=== PATIENT | female | born 1955 | race Caucasian/White ===

== ENCOUNTER 2018-06-28 10:46 | Emergency (ER) | payer BC ==
[~2018-06-28] VITALS: Ht 160 cm; Wt 88.0 kg
[~2018-06-28 10:46] MED LIST: ALPRAZOLAM0.5 MG PO; ASPIR-LOW81 MG PO; BUPRENORPHINE HC8 MG SL; COLACE100 MG PO; CYMBALTA60 MG; DILTIAZEM ER180 MG PO; DULOXETINE HCL60 MG PO; FOLIC ACID1 MG PO; FUROSEMIDE40 MG PO; GABAPENTIN300 MG PO; IRON18 MG PO; LISINOPRIL5 MG PO; MAPAP325 MG PO; OMEPRAZOLE20 M1 PO; PRAMIPEXOLE0.125 MG; RISPERDAL0.5 MG PO; TYLENOL325 MG PO; VITAMIN B12-FO1 EACH PO; VITAMIN C500 M1 PO; XANAX0.25 MG PO; ZOFRAN8 MG PO
[2018-06-28] MEDS ORDERED: MOBIC15 MG PO (11:06)
[2018-06-28] MEDS ORDERED: METOPROLOL SUCC50 MG PO (11:07)
== END 2018-06-28 13:00 | disposition home or self-care (01) ==
LOC: ED 10:46
DX: M79.81 Nontraumatic hematoma of soft tissue (principal); I10 Essential (primary) hypertension; F41.9 Anxiety disorder, unspecified; Z85.038 Personal history of other malignant neoplasm of large intestine; Z98.84 Bariatric surgery status; Z90.89 Acquired absence of other organs; Z91.041 Radiographic dye allergy status; Z79.899 Other long term (current) drug therapy
CPT/HCPCS: 74176; 80053; 81001; 83690; 85025; 99284-25

== ENCOUNTER 2018-10-03 06:05 | Day surgery (SDC) | payer BC ==
[~2018-10-03] VITALS: Ht 160 cm; Wt 86.2 kg
[~2018-10-03 06:05] MED LIST changes: +ADVIL200 MG PO; +ALPRAZOLAM0.25 MG PO; +DILTIAZEM 24HR240 M3 PO; +DOXYCYCLINE HY100 MG PO; +METOPROLOL SUCC25 MG PO; +METOPROLOL SUCC50 MG PO; +MOBIC15 MG PO; +NABUMETONE500 MG PO; +VIACTIV SOFT C1 EACH PO; +VITAMIN D35000 UNI1 PO
--- NOTE | 2018-10-03 08:42 | NUR ---
10/03/18 0842 Altagracia Medrano 0838 PATIENT ARRIVES TO PACU AWAKE OFF/ON, BUT DROWSY. ANSWERS QUESTIONS APPROPRIATELY. RESP EVEN AND UNLABORED, MASK AT 6 LITERS. 0840 MASK OFF, ROOM AIR SATS >95%.
--- NOTE | 2018-10-03 14:39 | NUR ---
PT IS ALERT, ORIENTED AND SUPPORTED BY HER MARISSA. PT'S FIRST SCOPE, AND SEEMED TO COPE WELL WITH PREP. HAD FEW QUESTIONS, REQUESTED PRAYER, WILL FOLLOW NEEDED
--- NOTE | 2018-10-05 21:40 | OR ---
[facility] [address], [place] [address] Signed DATE OF OPERATION: 10/03/2018 SURGEON: Pablo Ward MD PREOPERATIVE DIAGNOSES: 1. Heme-positive stool. No overt rectal bleeding. 2. History of low anterior resection for malignant polyp in 1997. 3. History of anastomotic stricture requiring dilation in 1998. POSTOPERATIVE DIAGNOSES: 1. Mild anastomotic inflammation. No evidence of recurrent polyps or cancer. 2. Internal hemorrhoids. 3. Mild inflammation of rectum and roger-sigmoid. PROCEDURES: 1. Total colonoscopy to cecum with biopsy of anastomotic area with application of hemoclips. 2. Biopsy of rectum and sigmoid. ANESTHESIA: Intravenous sedation with propofol infusion, Monet Gudino CRNA. INDICATION: This 63-year-old white woman is a patient of Dr. Bernarda Negron in the [facility]. She has been found to have occult blood in the stool, although she has had no overt rectal bleeding or hematemesis. She has no associated diarrhea or constipation. She underwent low anterior resection with anastomosis by wy in 1997, which was complicated by anastomotic stricture requiring anastomotic dilation and other interventions, ultimately healing well. Her last colonoscopy was in 2014 showing no sign of polyps or other problem. She was admitted at this time to undergo colonoscopy to rule out neoplastic causes of occult blood in the stool. She understands the risks of bleeding, infection, perforation, and wished to proceed. FINDINGS: The prep was adequate with irrigation, but not great. Complete colonoscopy was undertaken to the cecum without question. The anastomosis was patent, but obvious and had mild inflammatory changes with small amount of blood noted. This may well have accounted for fecal occult blood. Biopsies were taken of the anastomosis as well as the roger-sigmoid and the rectum. She did have internal hemorrhoids noted as well. There was no evidence of polyp or cancer or diverticular formations. Electronically Signed By: PABLO WARD MD 10/05/18 2140 PATIENT NAME: CHATO MONAE OPERATIVE REPORT DATE OF : 55 REPORT #: [id number] PHYSICIAN: PABLO WARD MD PCP: BERNARDA NEGRON MD REPORT IS CONFIDENTIAL AND NOT TO BE RELEASED WITHOUT AUTHORIZATION [facility] [address], [place] [address] Signed DESCRIPTION OF PROCEDURE: The patient was brought to the secondary endoscopy suite, placed in lateral decubitus position, given intravenous sedation with propofol infusional technique. Digital rectal examination showed external hemorrhoidal changes. An Olympus video colonoscope was passed in the rectum identifying at about 10 to 12 cm of the anastomosis. It was patent, but narrower than the point hope ira colon as would be expected. Prior to passage through it, it was noted that there was a small amount of inflammation circumferentially in the anastomosis. There was no sign of ulceration per se nor neoplasm. The scope was passed beyond it without problem and manipulated throughout the colon. Considerable amount of irrigation and time was required as her prep was suboptimal, no doubt related to only 2 days of low-fiber diet and from the MiraLAX prep. Ultimately, scope was passed to the cecum. Irrigation was undertaken. Characteristic landmarks were affirmed. Scope was then withdrawn and careful examination showed no sign of polyps or cancer or diverticular formations. There appeared to be mild edema of the sigmoid for which biopsies were obtained. Upon withdrawal, the anastomosis itself had inflammatory appearance. This was biopsied as well. There was prompt bleeding at the anastomotic biopsy sites and therefore two hemoclips were applied. This allowed for good hemostasis. The rectum was biopsied and retroflexed view showed internal hemorrhoidal changes. Scope was straightened and removed and the patient was taken to recovery room in good condition. CONCLUDING DIAGNOSIS: Fecal occult bleeding may be related to anastomotic inflammation and minimal bleeding. PLAN: We will initiate Cortenema one p.r. daily x7 days and discontinue. Advise Citrucel one tablespoon daily with added water. If she should have overt bleeding or other problems, she will let me know. She will return to the ongoing care of her primary provider, Dr. Negron otherwise. MD GRANT Denny/MODL /[id number] Electronically Signed By: PABLO WARD MD 10/05/18 2140 PATIENT NAME: CHATO MONAE OPERATIVE REPORT DATE OF : 55 REPORT #: [id number] PHYSICIAN: PABLO WARD MD PCP: BERNARDA NEGRON MD REPORT IS CONFIDENTIAL AND NOT TO BE RELEASED WITHOUT AUTHORIZATION [facility] [address], [place] [address] Signed cc: Bernarda Negron MD Copies: BERNRADA NEGRON MD ~ Electronically Signed By: PABLO WARD MD 10/05/18 2140 PATIENT NAME: CHATO MONAE OPERATIVE REPORT DATE OF : 55 REPORT #: [id number] PHYSICIAN: PABLO WARD MD PCP: BERNARDA NEGRON MD REPORT IS CONFIDENTIAL AND NOT TO BE RELEASED WITHOUT AUTHORIZATION
== END 2018-10-03 09:20 | disposition home or self-care (01) ==
LOC: DS 06:05 → OPS 06:05 → DS 06:45 → OPS 06:45
PROVIDERS: Surgery
PROC: 0DBN8ZX Excision of Sigmoid Colon, Via Natural or Artificial Opening Endoscopic, Diagnostic (ICD-10-PCS; 2018-10-03)
PROC: 0DBP8ZX Excision of Rectum, Via Natural or Artificial Opening Endoscopic, Diagnostic (ICD-10-PCS; principal; 2018-10-03 06:45)
DX: K63.5 Polyp of colon (principal); K63.89 Other specified diseases of intestine; K64.8 Other hemorrhoids; K64.4 Residual hemorrhoidal skin tags; K52.9 Noninfective gastroenteritis and colitis, unspecified; K62.89 Other specified diseases of anus and rectum; D64.9 Anemia, unspecified; I10 Essential (primary) hypertension; F32.9 Major depressive disorder, single episode, unspecified; Z86.010 Personal history of colon polyps; Z85.038 Personal history of other malignant neoplasm of large intestine; Z91.041 Radiographic dye allergy status; Z91.048 Other nonmedicinal substance allergy status; Z79.899 Other long term (current) drug therapy
CPT/HCPCS: J2250; J2405; J2704; J7120

== ENCOUNTER 2021-07-14 06:00 | Day surgery (SDC) | payer MEDICARE, BC ==
[~2021-07-14] VITALS: Ht 160 cm; Wt 89.1 kg
[~2021-07-14 06:00] MED LIST changes: +CANDICIDAL CAP1 EACH PO; +CYMBALTA30 MG PO; +DICLOFENAC SODI75 MG PO; +FOSAMAX70 MG PO; +LYRICA50 MG PO; +NEURONTIN100 MG PO; +OMEPRAZOLE20 MG PO
--- NOTE | 2021-07-14 08:35 | NUR ---
07/14/21 0835 Haven,Lauren 0896 PT ARRIVED TO PACU ON RA AND PT WAKES EASILY AND DENIES PAIN AND NAUSEA. VSS. PT ENCOURAGED TO PASS GAS.
--- NOTE | 2021-07-14 10:48 | NUR ---
PT ALERT, ORIENTED AND HERE FOR SCOPE. PT HAS BATTLED COLON CANCER, AND WANTS TO STAY ON TOP OF THINGS WITH REGULAR SCOPES. FAMILY PRESENT AND WILL REMAIN FOR DC. PT REQUESTED PRAYER, WILL FOLLOW NEEDED
--- NOTE | 2021-07-14 12:07 | OR ---
[facility] [address] [place], [place] [address] Signed DATE OF OPERATION: 07/14/2021 SURGEON: Pablo Ward MD PREOPERATIVE DIAGNOSES: 1. Episodic rectal bleeding, chronic anemia, hematocrit of 30. 2. History of low anterior resection for malignant polyp in 1994. 3. History of gastric bypass operation. POSTOPERATIVE DIAGNOSES: 1. Internal hemorrhoidal changes. 2. Impacted stool at cecal possible diverticulum. PROCEDURE: Total colonoscopy to cecum with multiple biopsies beneath impacted stool at cecum. ANESTHESIA: Intravenous sedation propofol, Cathie Batista VENEER GLUE JOINTER FEEDBACK. INDICATION: A 66-year-old white woman is well known to me from the past having undergone low anterior resection for malignant polyp in 1994. She did develop a subsequent stricture which was ultimately dilated. She has had subsequent colonoscopy over time. She does have family history of colon cancer in her sister who developed rectal cancer requiring advanced treatment. The patient has had episodic rectal bleeding and has chronic anemia. She additionally has had gastric bypass operation, likely accounting or contributing to anemia. She is admitted to undergo colonoscopy to better characterize the rectal bleeding and to assess for recurrent polyp or other abnormality. The risk of bleeding, infection, and perforation was reviewed with her. She understands and wished to proceed. FINDINGS: The prep was good. Complete colonoscopy was undertaken to the cecum. The anastomosis was widely patent. There was no evidence of stricture. Retroflexed view did confirm internal hemorrhoidal changes. In the cecum, there was an area that was suggestive of a wide-mouth diverticulum with impacted stool. Various manipulations were made to remove the stool, but this was not possible. On that basis, biopsies were taken at the base of the presumed diverticulum to assess for malignancy. DESCRIPTION OF PROCEDURE: Electronically Signed By: PABLO WARD MD 07/14/21 1207 PATIENT NAME: CHATO MONAE OPERATIVE REPORT DATE OF : 55 REPORT #: [id number] PHYSICIAN: PABLO WARD MD PCP: BERNARDA NEGRON MD REPORT IS CONFIDENTIAL AND NOT TO BE RELEASED WITHOUT AUTHORIZATION [facility] [address] [place], [place] [address] Signed The patient was brought to the surgical endoscopy suite and placed in the lateral decubitus position, given intravenous sedation to the point of slurred speech and nystagmus with propofol infusional technique. Full cardiopulmonary monitoring was maintained of course. An Olympus video colonoscope was passed in the rectum after digital rectal examination was found to be normal. The scope was manipulated through the low anterior anastomosis, which was widely patent. Ultimately, the scope was passed to the area of the cecum. An area of solid stool was noted in what appeared to be a cecal diverticulum. Various manipulations were made with a forcep to dislodge the stool, but this was not forthcoming. On that basis, biopsies were taken blindly behind the impacted stool area, ultimately obtaining tissue. Irrigation was undertaken as needed as well. The scope was then withdrawn. Examination showed no evidence of abnormality otherwise. Retroflexed view confirmed internal hemorrhoids. The patient was taken to the recovery room in good condition. CONCLUDING DIAGNOSIS: Internal hemorrhoids, most likely accounting for her rectal bleeding. If she should have continued bleeding, consideration will be made for internal hemorrhoidal banding in the office setting. As regard to the cecal lesion, we will await pathology reports. Most likely this does not represent malignancy, though all due care is taken to provide biopsies to more fully assure that. We will have her return to the office in 4 to 6 weeks, in either case to further assess her symptoms and review pathology reports. MD GRANT Denny/ANAL /[id number] cc: Bernarda Negron MD Copies: BERNARDA NEGRON MD ~ Electronically Signed By: PABLO WARD MD 07/14/21 1207 PATIENT NAME: CHATO MONAE OPERATIVE REPORT DATE OF : 55 REPORT #: [id number] PHYSICIAN: PABLO WARD MD PCP: BERNARDA NEGRON MD REPORT IS CONFIDENTIAL AND NOT TO BE RELEASED WITHOUT AUTHORIZATION
--- NOTE | 2021-07-15 17:47 | PATH ---
[facility] [address] [place], [place] [address] Signed SPECIMEN(S): A CECUM BIOPSY SPECIMEN SOURCE: A. CECUM BIOPSY CLINICAL HISTORY: Hx: Rectal bleeding. Post: Questionable cecal lesion. FINAL PATHOLOGIC DIAGNOSIS: Colon, cecum, biopsy: - Fragments of colonic mucosa with focal lamina propria fibrosis and hyperplastic changes. - Negative for dysplasia or malignancy. NAL:cml:C2NR MICROSCOPIC EXAMINATION: Histologic sections of all submitted blocks are examined by light microscopy. These findings, together with the gross examination, support the pathologic diagnosis. GROSS DESCRIPTION: The specimen, labeled "CS, cecum biopsy," is received in formalin and consists of multiple storm soft tissue fragment(s) that measure 1.5 x 1.6 x 0.2 cm aggregate. The specimen is entirely submitted in cassette (A1). JS (under the direct supervision of a pathologist) The Gross Description was prepared using a voice recognition system. The report was reviewed for accuracy; however, sound-alike word errors, addition and/or deletions may occur. If there is any question about this report, please contact Client Services. PERFORMING LABORATORY: The technical component was performed by [employer], [address] [place] [id number] (Heating And Air Conditioning Mechanic: Ghada Cyr MD; CLIA# [id number]). [facility] [address] [address] (CLIA# [id number]). Diagnostician: Ashlyn Rangel MD Pathologist Electronically Signed 07/15/2021 PATIENT NAME: CHATO MONAE PATHOLOGY DATE OF : 55 REPORT #: [id number] PHYSICIAN: LUCÍA PATHOLOGY PCP: ANA MARIA CANTU MD REPORT IS CONFIDENTIAL AND NOT TO BE RELEASED WITHOUT AUTHORIZATION [address] [place], [place] [address] Signed Copies: ~ PATIENT NAME: CHATO MONAE PATHOLOGY DATE OF : 55 REPORT #: [id number] PHYSICIAN: LUCÍA PATHOLOGY PCP: ANA MARIA CANTU MD REPORT IS CONFIDENTIAL AND NOT TO BE RELEASED WITHOUT AUTHORIZATION
== END 2021-07-14 09:04 | disposition home or self-care (01) ==
LOC: OPS 06:00 → DS 06:00 → OPS 07:30
PROVIDERS: ATTEND Surgery
PROC: 0DBH8ZX Excision of Cecum, Via Natural or Artificial Opening Endoscopic, Diagnostic (ICD-10-PCS; principal; 2021-07-14 07:30)
DX: K64.8 Other hemorrhoids (principal); K56.41 Fecal impaction; K63.89 Other specified diseases of intestine; I10 Essential (primary) hypertension; E66.01 Morbid (severe) obesity due to excess calories; Z68.35 Body mass index [BMI] 35.0-35.9, adult; Z85.038 Personal history of other malignant neoplasm of large intestine; Z80.0 Family history of malignant neoplasm of digestive organs; Z98.84 Bariatric surgery status; Z87.81 Personal history of (healed) traumatic fracture; Z91.041 Radiographic dye allergy status; Z91.048 Other nonmedicinal substance allergy status; Z98.890 Other specified postprocedural states
CPT/HCPCS: J2001; J2704; J7121

== ENCOUNTER 2022-01-08 14:30 | Inpatient (IN) | payer MEDICARE, BC ==
[~2022-01-08] VITALS: Ht 160 cm; Wt 81.1 kg
[~2022-01-08 14:30] MED LIST changes: +FOLIC ACID0.4 MG PO; -FOLIC ACID1 MG PO; -IRON18 MG PO; +IRON325 M1 PO; +VIACTIV 650 MG1 EACH PO; -VIACTIV SOFT C1 EACH PO
[2022-01-08] MEDS ORDERED: ZESTRIL20 MG PO (15:01)
[2022-01-08] MEDS ORDERED: LYRICA150 MG PO (15:01)
[2022-01-08] MEDS ORDERED: RISPERDAL0.5 MG PO (15:02)
[2022-01-08] MEDS ORDERED: ONDANSETRON ODT8 MG PO (15:02)
[2022-01-08] MEDS ORDERED: TOPROL XL100 MG PO (15:04)
[2022-01-08] MEDS ORDERED: BUPRENORPHINE HC8 MG SL (15:04)
[2022-01-08] MEDS ORDERED: PRILOSEC OTC20 MG PO (15:04)
[2022-01-08] MEDS ORDERED: DICLOFENAC SODI75 MG PO (15:06)
[2022-01-08] MEDS ORDERED: CYMBALTA60 MG PO (15:06)
--- OUTSIDE RECORDS SUMMARY | 2022-01-08 16:14 | XMS ---
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 Roberto VISIT COUNT (12 MO.) Michael Jhaveri TOTAL 1 NOTE: Visits indicate total known visits. ED/UCC VISIT TRACKING (12 MO.) 01/08/2022 14:[address] [facility] [place] TYPE: Emergency COMPLAINT: - MULTIPLE COMPLAINTS INPATIENT VISIT TRACKING (12 MO.) No inpatient visits to display in this time frame [id number]
[2022-01-09] MEDS ORDERED: ONDANSETRON HCL8 MG PO (08:54)
[2022-01-09] MEDS ORDERED: DILTIAZEM 2% TOP (08:56)
[2022-01-09] MEDS ORDERED: ACETAMINOPHEN500 MG PO (08:59)
--- NOTE | 2022-01-11 09:21 | OR ---
[facility] [address] [place], [place] [address] Signed DATE OF OPERATION: 01/10/2022 SURGEON: Pablo Ward MD PREOPERATIVE DIAGNOSES: 1. Anemia of uncertain etiology. 2. History of low anterior resection for malignant polyp in 1995. 3. History of Margie-en-Y gastric bypass. 4. Known posterior anal fissure. POSTOPERATIVE DIAGNOSES: 1. No evidence of abnormality on upper endoscopy. 2. Normal colon to cecum except for posterior anal fissure. PROCEDURES: 1. Esophagogastroduodenoscopy with biopsy. 2. Total colonoscopy to cecum. ANESTHESIA: Intravenous sedation; propofol infusion, Pablo Marmolejo CRNA INDICATIONS: This 66-year-old white woman was admitted by [facility] on January 08, 2022, with severe and intractable anorectal pain. Outpatient management of posterior anal fissure had been unsuccessful. She takes buprenorphine on the basis of chronic pain management issues and has underlying constipation. A CT scan was performed upon her presentation to the emergency room with intractable pain, which showed a fair amount of stool within the colon and a markedly dilated gallbladder and biliary tree. Strangely, she does not have significantly elevated liver enzymes and no sign of neoplasm of the pancreatic head. She was incidentally found to have a hematocrit of 27, subsequently, 20. She has had no overt bleeding. She has undergone MiraLAX as a remedy to her constipation and also has a preamble to colonoscopy and is also to concurrently undergo upper endoscopy to better characterize the source of her anemia. The risk of bleeding, infection, and perforation were reviewed with her, she understands and wished to proceed. FINDINGS: Upper endoscopy demonstrated a normal esophagus and very small gastric pouch. No sign of ulceration. CLOtest was negative. The jejunal limb was normal as well. I saw no peristomal ulceration. Electronically Signed By: PABLO WARD MD 01/11/22 0921 PATIENT NAME: CHATO MONAE OPERATIVE REPORT DATE OF : 55 REPORT #: [id number] PHYSICIAN: PALBO WARD MD PCP: BERNARDA NEGRON MD REPORT IS CONFIDENTIAL AND NOT TO BE RELEASED WITHOUT AUTHORIZATION [facility] [address] [place], [place] [address] Signed On colonoscopy, the prep was poor but with perseverance complete colonoscopy was undertaken to the cecum. With irrigation and so forth, reasonable evaluation of the mucosa showed no evidence of neoplasm, colitis, or other source of anemia. A posterior anal fissure was demonstrated as previously noted. DESCRIPTION OF PROCEDURE: The patient was brought to the surgical endoscopy suite and placed in lateral decubitus position, given intravenous sedation by propofol infusional technique and a bite block was placed. The Olympus video upper endoscope was passed in the hypopharynx. The vocal cords appeared normal. Scope was passed down the esophagus without problem showing no abnormality. A very small gastric pouch was noted. A side to end gastrojejunostomy anastomosis were identified, showing no sign of peristomal ulceration or other problem. The efferent limb was intubated and passed as far as the scope could go showing no sign of abnormality. I saw no junction between jejunum and duodenum. Careful withdrawal of scope confirmed this. There was a small diverticulum of no significance noted, however. Upon withdrawal to the gastric pouch, biopsies were taken of the gastric pouch for both PRESTON and pathologic testing. There was no sign of ulceration or source of anemia. The scope was withdrawn. The esophagus was normal. The distal portion was biopsied. Withdrawal of scope showed no other abnormalities. Plans were made for colonoscopy. Digital rectal examination was undertaken. She has significant external hemorrhoidal changes. An Olympus video colonoscope was passed in the rectum and manipulated into the rectum where a very poor bowel prep was noted despite a MiraLAX prep undertaken last night. Irrigation was undertaken as necessary and with perseverance and patience, the scope was advanced ultimately to the cecum. The ileocecal valve and appendiceal orifice were identified as normal. Irrigation was undertaken and upon withdrawal of the scope, no abnormalities were noted. Some moderately well-formed stool was noted on the left side and therefore complete assurity of no abnormality cannot be ascertained entirely. The anastomosis itself was widely patent without sign of abnormality specifically neoplasm and the rectum was essentially normal. Close inspection of the anorectum confirmed a posterior anal fissure which was not extremely lengthy, but certainly inflamed and present. The scope was removed. The patient was taken to the recovery room in good condition. CONCLUSION DIAGNOSES: 1. No evidence of lesion on upper endoscopy to account for anemia; one is mindful that the excluded stomach and duodenum have not been examined. 2. No lesion on colon to account for anemia. Pablo Ward MD Electronically Signed By: PABLO WARD MD 01/11/22 0921 PATIENT NAME: CHATO MONAE OPERATIVE REPORT DATE OF : 55 REPORT #: [id number] PHYSICIAN: PABLO WARD MD PCP: BERNARDA NEGRON MD REPORT IS CONFIDENTIAL AND NOT TO BE RELEASED WITHOUT AUTHORIZATION [facility] [address] [place], [place] [address], [place] [address] Signed /[facility] /[id number] cc: Bernarda Negron MD Copies: BERNARDA NEGRON MD ~ Electronically Signed By: PABLO WARD MD 01/11/22920 PATIENT NAME: CHATO MONAE OPERATIVE REPORT DATE OF : 55 REPORT #: [id number] PHYSICIAN: PABLO WARD MD PCP: BERNARDA NEGRON MD REPORT IS CONFIDENTIAL AND NOT TO BE RELEASED WITHOUT AUTHORIZATION
--- NOTE | 2022-01-11 14:42 | HP ---
[facility] [address], [place] [address] Signed ADMISSION DATE: 01/08/2022 REASON FOR ADMISSION: Severe perianal pain. RECENT DIAGNOSES: Anal fissure and constipation; additional diagnosis of distended biliary tree with gallstones. HISTORY OF PRESENT ILLNESS: This 66-year-old white woman is well known to me from the past. She is last seen by me on as a walk-in with complaints of severe anal pain and tenesmus. She underwent colonoscopy by me in the past year, which was essentially normal. 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 She presented to the emergency room this evening, was evaluated by Dr. Garcia with complaints of "abdominal pain and rectal pain." Upon discussing things with the patient, she is a bit disorganized in the recognition of her main complaint which as it turns out is anal pain. When she was in my office, she had several episodes of tenesmus, unable to produce bowel movement though with spasm and so forth. Anal examination in the office on showed a posterior anal fissure and although not excessively large was definitely present and probably chronic. She was prescribed diltiazem ointment (which she received and began yesterday) as well as Anusol HC suppository and recommendation of a fiber supplement and so on. The patient cannot recall if she has had a bowel movement since I saw her on . Evaluation in the emergency room included a CT scan of the abdomen which showed stool in the transverse left colon and as well as a widely patent colorectal anastomosis. Additionally noted and previously noted on other imaging studies months ago was a markedly dilated biliary tract and previous findings of intracholedochal stones between 1.5 in 2 cm in size. The gallbladder now was quite markedly distended and the biliary tree is difficult to distinguish, though it is considered dilated with both intrahepatic and extrahepatic ductal dilation. She shows no evidence of obvious pancreatic head neoplasm and there is no "double duct sign." Specifically, the pancreatic duct is not dilated. PAST MEDICAL HISTORY: Electronically Signed By: PABLO WARD MD 01/11/22 1442 PATIENT NAME: CHATO MONAE HISTORY AND PHYSICAL DATE OF : 55 REPORT #: [id number] PHYSICIAN: PABLO WARD MD PCP: ANA MARIA CANTU MD REPORT IS CONFIDENTIAL AND NOT TO BE RELEASED WITHOUT AUTHORIZATION [facility] [address], [place] [address] Signed Complex and includes laparoscopic gastric bypass operation for which she had a fair amount of weight loss. This was a number of years ago. Her CT scan that was performed-previously and currently shows no sign of internal hernia or bowel obstruction in any way. She has osteoarthritis and fibromyalgia and chronic pain syndrome for which she is currently on buprenorphine. She additionally has anxiety issues, gastroesophageal reflux and hypertension. CURRENT MEDICATIONS: Include buprenorphine 8 mg sublingual t.i.d. as well as lisinopril 20 mg daily. Lyrica 150 mg p.o. b.i.d., risperidone 0.5 mg p.o. at bedtime, Zofran ODT 8 mg p.o. q.i.d., omeprazole 20 mg daily, metoprolol (Toprol-XL) 100 mg p.o. daily, diclofenac 75 mg b.i.d., Cymbalta 60 mg p.o. daily, Lasix 80 mg p.o. daily, Tylenol 1000 mg p.o. q.i.d., vitamin C 500 mg p.o. daily, vitamin B12 one p.o. daily, iron tablet 130 mg p.o. b.i.d., folic acid 400 mcg p.o. daily, vitamin D3 5000 units a day, calcium carbonate, vitamin K, vitamin D3 tablet daily and Colace 100 mg p.o. Not mentioned was her recent initiation of diltiazem as well as Anusol-HC suppository. Her evaluation in the emergency room included normal urinalysis, COVID negative serology and a white count of 8.7, hematocrit of 27.2 with a potassium of 3.3, a creatinine 0.7. Her liver enzymes are surprisingly normal with alkaline phosphatase elevated at 151, but ALT and AST are normal. Bilirubin normal at 0.4. REVIEW OF SYSTEMS: She denies any chest pain or shortness of breath. She only has vague abdominal pain, i is definitely not her dominant complaint at this time. Her main complaint is perianal pain and rectal pain. I reviewed the CT scan as well as interpretation of the scan. ASSESSMENT: Her dominant problem remains anorectal pain presumably related to the posterior anal fissure. She only started her diltiazem ointment yesterday. Under these circumstances, she may be best advised to proceed directly to lateral internal sphincterotomy and she has pronounced an exaggerated and excessive perianal pain, which we would attribute to spasm and the anal fissure. As she has had colonoscopy in the past year that showed no sign of neoplastic disease or anastomotic stricture that is quite a bit less likely, though not impossible of course. At present, we will address her perianal pain with measures to minimize opiate use as she has had obvious dependency issue in the past and on that basis is on buprenorphine. She may require exam under anesthesia and lateral internal sphincterotomy promptly. I would prefer to get her presumably constipated bowel movement going and will need to assess the most efficacious way to do so without exacerbating her perianal pain. She may require more complete bowel evacuation after sphincterotomy. Electronically Signed By: PABLO WARD MD 01/11/22 1442 PATIENT NAME: CHATO MONAE HISTORY AND PHYSICAL DATE OF : 55 REPORT #: [id number] PHYSICIAN: PABLO WARD MD PCP: ANA MARIA CANTU MD REPORT IS CONFIDENTIAL AND NOT TO BE RELEASED WITHOUT AUTHORIZATION [facility] [address], [place] [address] Signed As regards to the biliary tree, she clearly needs cholecystectomy and probably common duct exploration. I am slightly surprised that she does not have more profound elevation of the liver enzymes or even her bilirubin. The dilation of the biliary tree is significant in the gallbladder even more so. Always of concern of course is occult pancreatic neoplasm or ampullary neoplasm. The ampulla is out of reach for endoscopic evaluation as she has had a gastric bypass operation. Consideration might be made for another imaging modality such as MRI to more fully assess this, but it is certainly possible that she simply has choledocholithiasis without associated ampullary or pancreatic neoplasm. Although CA 19-9 tumor marker is not specific to malignancy and can be elevated primarily in biliary obstructive processes. We will order that as well, which may guide therapy depending on whether or not it is markedly elevated or more importantly if it is normal. I have discussed all this with the patient. She is said to have been unable to eat in the past few days and yet now she is quite ravenously hungry for a hamburger. Hamburger is not available at this hour, but perhaps a turkey sandwich is something of that sort and may be possible. MD GRANT Denny/MODL /[id number] cc: Gavin Garcia MD Dr. Copies: GAVIN GARCIA MD ~ Electronically Signed By: PABLO WARD MD 01/11/22 1442 PATIENT NAME: CHATO MONAE HISTORY AND PHYSICAL DATE OF : 55 REPORT #: [id number] PHYSICIAN: PABLO WARD MD PCP: ANA MARIA CANTU MD REPORT IS CONFIDENTIAL AND NOT TO BE RELEASED WITHOUT AUTHORIZATION
--- NOTE | 2022-01-11 14:48 | PATH ---
[facility] [address], [place] [address] Signed SPECIMEN(S): A GASTRIC POUCH BIOPSY SPECIMEN(S): B ESOPHAGEAL BIOPSY SPECIMEN SOURCE: A. GASTRIC POUCH BIOPSY B. ESOPHAGEAL BIOPSY CLINICAL HISTORY: Anemia, rectal fissure. Post: Normal upper GI scope. Normal lower GI scope. Posterior anal fissure. FINAL PATHOLOGIC DIAGNOSIS: A. Gastric pouch biopsy: - Benign gastric and small bowel-type mucosa with focal slight chronic inflammation and reactive features. - Negative for evidence of Helicobacter organisms on routine HE stained sections. B. Esophageal biopsy: - Benign esophageal mucosa, negative for increased epithelial eosinophils. - Negative for glandular mucosa. JVR:[place]:C2NR MICROSCOPIC EXAMINATION: Histologic sections of all submitted blocks are examined by light microscopy. These findings, together with the gross examination, support the pathologic diagnosis. GROSS DESCRIPTION: Two specimens are received in two containers, labeled "CS." A. The specimen, labeled and designated" CS, gastric pouch biopsy," is received in formalin and consists of seven storm soft tissue fragment(s) that measure 0.1-0.2 cm in greatest dimension. The specimen is entirely submitted in cassette (A1). B. The specimen, labeled and designated" CS, esophageal biopsy," is received in formalin and consists of two storm soft tissue fragment(s) that measure 0.2-0.3 cm in greatest dimension. The specimen is entirely submitted in cassette (B1). VB (under the direct supervision of a pathologist) The Gross Description was prepared using a voice recognition system. The report was reviewed for accuracy; however, sound-alike word errors, addition and/or deletions may occur. If there is any PATIENT NAME: CHATO MONAE PATHOLOGY DATE OF : 55 REPORT #: [id number] PHYSICIAN: LUCÍA QUISPE PCP: ANA MARIA CANTU MD REPORT IS CONFIDENTIAL AND NOT TO BE RELEASED WITHOUT AUTHORIZATION [facility] [address], [place] [address] Signed question about this report, please contact Client Services. PERFORMING LABORATORY: The technical component was performed by [facility], [address] [place] [address] (CLIA# [id number]). Professional interpretation was performed by [facility], [address] [place] [id number] (CLIA#: [id number]). Diagnostician: Michele Kovacs MD Pathologist Electronically Signed 01/11/2022 Copies: ~ PATIENT NAME: CHATO MONAE PATHOLOGY DATE OF : 55 REPORT #: [id number] PHYSICIAN: LUCÍA QUISPE PCP: ANA MARIA CANTU MD REPORT IS CONFIDENTIAL AND NOT TO BE RELEASED WITHOUT AUTHORIZATION
--- NOTE | 2022-01-13 15:46 | PATH ---
[facility] [address], [place] [address] Signed SPECIMEN(S): A GALLBLADDER AND GALLSTONES SPECIMEN(S): B DISTAL COMMON DUCT BIOPSY SPECIMEN(S): C COMMON DUCT STONES SPECIMEN SOURCE: A. GALLBLADDER AND GALLSTONES B. DISTAL COMMON DUCT BIOPSY C. COMMON DUCT STONES CLINICAL HISTORY: Cholelithiasis, intra-choledochal stones/cholelithiasis and intra-choledochal stones, obstructive choledocholithiasis. FINAL PATHOLOGIC DIAGNOSIS: A. Gallbladder and gallstones: - Chronic calculous cholecystitis. - Incidental pericystic lymph node with reactive histologic features. B. Distal common duct biopsy: - Granulation tissue with acute and chronic inflammation. - Scant reactive epithelium. C. Common duct stones, gross only: - Multiple orange-brown friable calculi (3.5 x 3.0 x 1.3 cm in aggregate). JVR:[facility]:C2NR MICROSCOPIC EXAMINATION: Histologic sections of all submitted blocks are examined by light microscopy. These findings, together with the gross examination, support the pathologic diagnosis. GROSS DESCRIPTION: Three specimens are received in three containers, labeled "CS." A. The specimen, labeled "CS, A," and designated on the requisition "gallbladder and gallstones," is received in formalin and consists of Specimen: Previously opened gallbladder. Dimensions: 11.5 x 7.0 x 0.9 cm. Serosa: Green-storm and smooth. Cystic Duct: Unobstructed, margin inked black and shaved. Calculi: Multiple brown, irregularly shaped calculi (0.1-0.6 cm in greatest dimension, and 1.5 x 1.5 x 0.5 cm in aggregate). Mucosa: [place]-storm and velvety with yellow stippling. Wall thickness: 0.5 cm. PATIENT NAME: CHATO MONAE PATHOLOGY DATE OF : 55 REPORT #: [id number] PHYSICIAN: LUCÍA PATHOLOGY PCP: ANA MARIA CANTU MD REPORT IS CONFIDENTIAL AND NOT TO BE RELEASED WITHOUT AUTHORIZATION [facility] [address], [place] [address] Signed Lymph node: One pink-storm possible pericystic lymph node (1.0 cm in greatest dimension). Additional: None. [employer] sections are submitted in cassette (A1). B. The specimen, labeled "CS, B," and designated on the requisition "biopsy of distal common bile duct," is received in formalin and consists of a fragment of pink-storm soft tissue (0.2 cm in greatest dimension). The specimen is submitted entirely in cassette (B1). C. The specimen, labeled "CS, C," and designated on the requisition "common duct stones x 20," is received in formalin and consists of multiple orange-brown, friable calculi (0.2-1.4 cm in greatest dimension and 3.5 x 3.0 x 1.3 cm in aggregate). The specimen is for gross examination only. AC (under the direct supervision of a pathologist) The Gross Description was prepared using a voice recognition system. The report was reviewed for accuracy; however, sound-alike word errors, addition and/or deletions may occur. If there is any question about this report, please contact Client Services. PERFORMING LABORATORY: The technical component was performed by [facility], [address] [place] [address] (CLIA# [id number]). Professional interpretation was performed by [facility], [address] [place] [address], [place] [address] (CLIA#: [id number]). Diagnostician: Michele Kovacs MD Pathologist Electronically Signed 01/13/2022 Copies: ~ PATIENT NAME: CHATO MONAE PATHOLOGY DATE OF : 55 REPORT #: [id number] PHYSICIAN: [facility] PCP: ANA MARIA CANTU MD REPORT IS CONFIDENTIAL AND NOT TO BE RELEASED WITHOUT AUTHORIZATION
--- NOTE | 2022-01-19 14:14 | OR ---
[facility] [address], [place] [address] Signed DATE OF OPERATION: 01/11/2022 SURGEON: Pablo Ward MD PREOPERATIVE DIAGNOSES: 1. Chronic symptomatic calculus cholecystitis with multiple common bile duct stones and significant ductal dilatation. 2. History of Margie-en-Y gastric bypass. 3. Multiple medical problems including recently disabling the symptomatic anal fissure and chronic anemia. 4. Additional medical problems of buprenorphine, chronic pain management, Charcot joint of ankle, and persistent obesity. POSTOPERATIVE DIAGNOSES: 1. Chronic symptomatic calculus cholecystitis with multiple common bile duct stones and significant ductal dilatation. 2. History of Margie-en-Y gastric bypass. 3. Multiple medical problems including recently disabling the symptomatic anal fissure and chronic anemia. 4. Additional medical problems of buprenorphine, chronic pain management, Charcot joint of ankle, and persistent obesity. PROCEDURES: 1. Open cholecystectomy with intraoperative cholangiogram. 2. Open common bile duct exploration with extraction of multiple gallstones. 3. Flexible choledochoscopy with basket extraction of distal common bile duct stones. 4. Flexible choledochoscopy with distal common bile duct biopsy and brush biopsies. 5. Completion T-tube cholangiogram. ANESTHESIA: General endotracheal, Benny Ritter CRNA and Sebastian Nava CRNA and preoperative right external oblique intercostal fascial plane block. INDICATION: This 66-year-old white woman is well known to me from the past having undergone low-anterior resection for malignant polyp in the late . She has undergone incisional hernia repair and other interventions by me in the past. She additionally has undergone Margie-en-Y gastric bypass. She recently had complaints of severe perianal pain and was found to have an anal fissure. Initial medical interventions were unsuccessful in relieving her symptoms and Electronically Signed By: PABLO WARD MD 01/19/22 1414 PATIENT NAME: HCATO MONAE OPERATIVE REPORT DATE OF : 55 REPORT #: [id number] PHYSICIAN: PABLO WARD MD PCP: BERNARDA NEGRON MD REPORT IS CONFIDENTIAL AND NOT TO BE RELEASED WITHOUT AUTHORIZATION [facility] [address], [place] [address] Signed she presented to the emergency room on January 08, 2022, with disabling anorectal pain, constipation and tenesmus symptoms as well as episodic right upper abdominal pain. She has in the past number of weeks undergone ultrasound and CT scan of the abdomen, which showed a massively dilated biliary tree with massively dilated gallbladder and multiple intracholedochal stones. Notably, her alkaline phosphatase is only 214, bilirubin normal, and other liver enzymes are normal. A CA 19-9 study was obtained, which is still pending. As the patient was noted to be anemic, upper endoscopy and colonoscopy were performed. There is no evidence of lesion to account for anemia on either upper or lower endoscopic evaluation, though it is noted that much of the stomach and all the duodenum was excluded from view due to her prior gastric bypass. The patient's biliary symptoms have included right upper abdominal pain following meals for a number of weeks, which has led to her overall situation of discomfort. Her fissure problem is currently treated with a diltiazem ointment and other measures and is much improved. I have recommended cholecystectomy and common duct exploration as appropriate. Quite obviously routine ERCP would not be possible due to her gastric bypass anatomy without operative intervention to include gastrotomy and so on. The stones that have been identified in the common bile duct are exceedingly large, some of them more than 2 cm in size with the exception of intracholedochal laser lithotripsy would not be amenable to conventional extraction by ERCP or even a laparoscopic approach. On the basis of these issues, I have recommended open cholecystectomy and common duct exploration as appropriate and other indicated procedures. The risks of bleeding, infection, bile duct injury, missed pathology including malignant pathology of the ampulla or elsewhere were all reviewed in detail. She understands and wished to proceed. FINDINGS: Indeed the gallbladder was quite markedly chronically inflamed and markedly distended as was the entire biliary tree. Common bile duct measured over 2 cm in size. The cystic duct about 1 cm. The liver itself was normal. There was no evidence of carcinomatosis. The head of the pancreas was palpated as normal. There was no palpable abnormality within the duodenum, specifically no ampullary neoplasm that could be palpated. The common bile duct was impressively impacted with multiple reddish-brown multifaceted gallstones, some of them are quite soft and easily able to be crushed and others that were firm. Flexible choledochoscopy was required for extraction of stones in the distal duct. Despite all efforts, passage of even a uretero-nephroscope into the duodenum was Electronically Signed By: PABLO WARD MD 01/19/22 1414 PATIENT NAME: CHATO MONAE OPERATIVE REPORT DATE OF : 55 REPORT #: [id number] PHYSICIAN: PABLO WARD MD PCP: BERNADRA NEGRON MD REPORT IS CONFIDENTIAL AND NOT TO BE RELEASED WITHOUT AUTHORIZATION [address] [address] Signed not possible. Biopsies were taken of the distal common duct with both brush and cold biopsy techniques. At conclusion, a completion T-tube cholangiogram does not fully show passage of contrast into the duodenum itself. However, I believe that it will with time considering she did not have jaundice preoperatively. DESCRIPTION OF PROCEDURE: The patient was brought to the operating room, given a general endotracheal anesthetic. A Huddleston catheter was placed. Preoperative antibiotic Ancef was given. Sequential compression device stockings were used. The abdomen was prepared with chlorhexidine solution and draped sterilely. A relatively small right subcostal incision was made and dissection carried through the subcutaneous tissue with electrocautery. Anterior rectus sheath, rectus muscle, posterior rectus sheath, and its attended peritoneum were incised with electrocautery allowing for entry into the abdomen. Immediately noted was a very distended and chronically inflamed gallbladder. This was on a mesenteric pedicle essentially. Local examination revealed no evidence of regional adenopathy. The common bile duct was impressively dilated at 2.5 cm or so. It did not appear to be malignant. There was certainly no sign of palpable neoplasm in the duodenum or at the pancreatic head. A Bookwalter retractor was affixed to the table. A pursestring suture was made in the apex of the gallbladder allowed for decompression of dark green bile and a few bits of stone debris. Once the gallbladder was decompressed, a ring clamp was applied to the puncture site. Using electrocautery, the peritoneum of the gallbladder was incised. The gallbladder easily dissected free from the liver itself. The gallbladder was essentially on a pedicle. Note was made of leakage of bile laterally at the apex, where the gallbladder had been. This was considered likely a subvesical duct, which was clipped as a large clip allowing for complete cessation of any bile leak. Dissection taken down to the infundibulum showed a relatively dilated cystic duct and cystic arterial branches were identified and doubly clipped and divided. The cystic duct was well identified, was grasped with a tonsil clamp and a right angled clamp and transected flushed with the gallbladder proper. The gallbladder was opened on the back table and found to have chronic inflammatory change of the mucosa and stone material. There was no sign of neoplasm. Plans were then made for cholangiogram. A small catheter was placed in the cystic duct and it was partially occluded with a clip. Intraoperative cholangiography was undertaken showing free flow of contrast into the peridilated biliary tree with multiple very large gallstones throughout. The catheter was removed and the cystic duct was triply clipped. Stay sutures were placed along the distal common bile duct, not far from the duodenum on the possibility that a choledochoduodenostomy may be required. Once the stay sutures were placed, an 11 blade was used to incise the anterior wall Electronically Signed By: PABLO WARD MD 01/19/22 1414 PATIENT NAME: CHATO MONAE OPERATIVE REPORT DATE OF : 55 REPORT #: [id number] PHYSICIAN: PABLO WARD MD PCP: BERNARDA NEGRON MD REPORT IS CONFIDENTIAL AND NOT TO BE RELEASED WITHOUT AUTHORIZATION [facility] [address], [place] [address] Signed common bile duct allowing for egress of clear bile and a few bits of stone debris. Immediately noted within the lumen of the gallbladder where stones ranged in the common bile duct. Tovar scissors were used to incise the common duct more fully. Marquise stone forceps were used to grasp large stones out of the common bile duct. Some of them were quite soft and mushy and others were firm and well-formed. Irrigation was undertaken and there was no more debris. Plans were made for flexible choledochoscopy. Flexible choledochoscope was passed into the common duct and proximal examination showed segmental biliary radicles and no evidence of neoplasm or sign of stone debris. The scope was reoriented distally, where in the distal portion where some adherent bits of stone quite densely adherent to the common duct distally. A series of efforts with the biopsy forceps, stone basket and so forth were used to free the material, but to no avail really. Multiple episodes of irrigation and manipulation of the debris were undertaken, the only small bits were able to be removed at any one time. A Suzy balloon catheter was then obtained and passed distally with all due care inflated and withdrawn freeing more stone material. Re-evaluation with the choledochoscope was undertaken and additional stone material was noted. On a few occasions, stones were able to be grasped with wire basket and extracted completely. Further and progressive passage of the flexible choledochoscope was undertaken, but given the size of the scope, the most distal interrogation could not be fully undertaken. At this point, it appeared that a bile duct was clear. On that basis, a #12 T-Tube was cut to the appropriate configuration and placed into the choledochotomy. The choledochotomy was closed with running 4-0 PDS suture. A T-tube cholangiogram was then performed. This showed no evidence of obvious stones, but certainly did show incomplete passage through the biliary tree distally and certainly no passage into the duodenum proper. On that basis, a flexible ureteronephroscope was then obtained and the T-tube removed and the scope passed down the duct, able to pass more distally than previously. Additionally noted was a stone which is thought possibly related to the failure of the T-tube cholangiogram. This stone and another similar to it though small were extracted with a flexible basket through the choledochoscope as well. There being no further ability to pass the scope distally into the duodenum proper. Glucagon was administered. Still there was no clear opening of the ampulla nor was it expected particularly. The full-size flexible choledochoscope was then passed down the duct and using a cup biopsy device and brush biopsy, biopsies were obtained. There was no untoward bleeding. The T-tube was resecured to the common bile duct and a completion T-tube cholangiogram undertaken. The cholangiogram showed more passage distally, but still no complete passage into the duodenum. Mindful that stone or debris could still be obstructing the duct, options were reviewed. Electronically Signed By: PABLO WARD MD 01/19/22 1414 PATIENT NAME: CHATO MONAE OPERATIVE REPORT DATE OF : 55 REPORT #: [id number] PHYSICIAN: PABLO WARD MD PCP: BERNARDA NEGRON MD REPORT IS CONFIDENTIAL AND NOT TO BE RELEASED WITHOUT AUTHORIZATION [facility] [address], [place] [address] Signed The anatomy of her stomach and certainly inability to easily access the ampulla via ERCP due to Margie-en-Y gastric bypass without special measures of gastrotomy, etc. were taken into consideration. Careful and thorough palpation in the region of pancreatic head showed no suspicious findings for pancreatic neoplasm. There is no palpable ampullary neoplasm through the duodenal wall, which was soft and easily identified. There was no sign of regional adenopathy or sign of metastatic disease to the liver. Though uncertain, I believe it probable that she had benign obstruction of the duct related to gallstones rather than to occult neoplasm of the distal duct or the ampulla proper. On that basis, it was deemed appropriate to secure the T-tube, which was done with a running 4-0 PDS suture. Through a separate stab incision, a 7-mm back up drain of Des type was placed in the subhepatic space. It is noted that the cholangiogram still showed distended biliary tree and interestingly a probable subvesical duct to the area where the lateral clip was applied. Reinspection of subhepatic space showed no sign of bile leak or other problem. Irrigation was undertaken and plans made for closure. The posterior sheath and its attended peritoneum were reapproximated with running #1 PDS suture. A 20 mL of 0.25% Marcaine with epinephrine injected locally in several layers. The anterior rectus sheath was reapproximated with running PDS suture as well. The skin was then closed in running subcuticular 3-0 Vicryl. The T-tube had been allowed to exit from the stab incision in the mid axillary line and both drains were secured to the skin with 2-0 nylon suture. The T-tube drain was attached to a bile bag for dependent drainage and the Des drain to bulb suction. Steri-Strips were applied to the wound as was Acticoat dressing. She was ultimately extubated and transferred to the recovery room in good condition having suffered no complications. Sponge, needle, and instrument counts reported as correct x3. MD GRANT Denny/ANAL /[id number] cc: Bernarda Negron MD Electronically Signed By: PABLO WARD MD 01/19/22 1414 PATIENT NAME: CHATO MONAE OPERATIVE REPORT DATE OF : 55 REPORT #: [id number] PHYSICIAN: PABLO WARD MD PCP: BERNARDA NEGRON MD REPORT IS CONFIDENTIAL AND NOT TO BE RELEASED WITHOUT AUTHORIZATION [address] [place], [place] [address] Signed Copies: BERNARDA NEGRON MD ~ Electronically Signed By: PABLO WARD MD 01/19/22 1414 PATIENT NAME: CHATO MONAE OPERATIVE REPORT DATE OF : 55 REPORT #: [id number] PHYSICIAN: PABLO WARD MD PCP: BERNARDA NEGRON MD REPORT IS CONFIDENTIAL AND NOT TO BE RELEASED WITHOUT AUTHORIZATION
--- NOTE | 2022-01-19 14:14 | OR ---
[facility] [address], [place] [address] Signed DATE OF OPERATION: 01/14/2022 SURGEON: Pablo Ward MD PREOPERATIVE DIAGNOSES: 1. Recent open cholecystectomy with extensive common bile duct exploration and stone extraction for markedly dilated biliary tree, January 11, 2022; placement of T-tube in an accessory drain. 2. Dislodgement of T-tube from common duct (presumed). 3. Colonic ileus. POSTOPERATIVE DIAGNOSES: 1. Recent open cholecystectomy with extensive common bile duct exploration and stone extraction for markedly dilated biliary tree, January 11, 2022; placement of T-tube in an accessory drain. 2. Dislodgement of T-tube from common duct (presumed). 3. Colonic ileus. 4. Retained distal common bile duct stones. PROCEDURE: 1. Exploration of abdomen, lavage of peritoneal cavity. 2. Open common bile duct exploration (#2). 3. Flexible choledochoscopy with extraction of additional common bile duct distal stones and stone debris. 4. Placement of T-tube and completion cholangiogram with surgeon directed fluoroscopy. 5. Decompressive colotomy. ANESTHESIA: General endotracheal, Sebastian Nava CRNA. INDICATIONS: This 66-year-old white woman was initially admitted on December 31, 2021, with severe perianal pain. She was found to have a fissure previously and conservative management has been beneficial. She has undergone upper endoscopy and colonoscopy to assess for anemia. There are no findings of note there. 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 For several months, she has had a dilated biliary tree with multiple common duct stones and symptoms including postprandial right subcostal and epigastric pain. Surprisingly, her liver enzymes were normal except for a somewhat elevated alkaline Electronically Signed By: PABLO WARD MD 01/19/22 1414 PATIENT NAME: CHATO MONAE OPERATIVE REPORT DATE OF : 55 REPORT #: [id number] PHYSICIAN: PABLO WARD MD PCP: BERNARDA NEGRON MD REPORT IS CONFIDENTIAL AND NOT TO BE RELEASED WITHOUT AUTHORIZATION [facility] [address], [place] [address] Signed phosphatase; her bilirubin was normal. On January 11, 2022, she underwent open cholecystectomy as there were very large stones noted in the common bile duct based on imaging studies. Her gallbladder was quite markedly distended and dilated and was excised without problem. Open common duct exploration revealed innumerable large and small stones filling the entire biliary tree. Flexible choledochoscopy and other methods were used to clear the duct of stones. Notably, a completion T-tube cholangiogram did not show flow into the duodenum. Consideration was made initially that there may be utility to a choledochoduodenostomy. However, it was uncertain if she may have a malignant component to her obstructive process, though she did not have a "double-duct sign." Biopsies were taken of the distal duct with both brush biopsy as well as open biopsies. Her T-tube was placed and an accessory drain placed. For first 24 hours T-tube drained well and the accessory drain had little if any. Shortly thereafter, however, she had copious amounts of drainage from the accessory tube in minimal amounts from the T-tube itself. Obviously, this was highly suspect for possible dislodgement of the tube, possibly related to her obesity or other factors. Yesterday, she underwent T-tube cholangiogram, which showed no connection to the biliary tree so far as could be told and free flow of contrast, therefore suggestive of complete extraction of the T-tube from the duct itself. Accessory tube remained patent and draining bile. Mindful of her uncertainty as to distal duct pathology her underlying Margie-en-Y gastric bypass anatomy and so forth, I have recommended exploration with replacement of the T-tube or possible choledochoduodenostomy for definitive management. The risks of bleeding, infection, and other unforeseen complications were reviewed with the patient as well as her ex- and her daughter understand and wished to proceed. FINDINGS: Indeed, the T-tube was well withdrawn from the site of the common bile duct. Indeed, it was only a few centimeters away from the abdominal wall itself. The common bile duct itself had egress of clear bile; the closure of the choledochotomy was intact. Quite marked inflammation of the common bile duct (though still dilated) was noted. The duodenum had not been mobilized previously and although somewhat inflamed was less problematic of common duct itself. Cholangiogram was performed, which showed debris not previously seen in the distal common duct and on that basis, repeat common duct exploration was undertaken as well as flexible choledochoscopy allowed for extraction of retained stones. Ultimately, a completion T-tube cholangiogram showed contrast into the duodenum. Consideration was made for a choledochoduodenostomy, however, the extensive edematous nature of the common bile duct was such that high hazard would attend to such an Electronically Signed By: PABLO WARD MD 01/19/22 1414 PATIENT NAME: CHATO MONAE OPERATIVE REPORT DATE OF : 55 REPORT #: [id number] PHYSICIAN: PABLO WARD MD PCP: BERNARDA NEGRON MD REPORT IS CONFIDENTIAL AND NOT TO BE RELEASED WITHOUT AUTHORIZATION [facility] [address], [place] [address] Signed anastomosis and therefore, T-tube placement alone was performed. She additionally was noted to have a markedly dilated transverse colon as had been seen on CT scan and on that basis, a decompressive colotomy was undertaken as well. DESCRIPTION OF PROCEDURE: The patient was brought to the operating room, given a general endotracheal anesthetic. A Huddleston catheter was placed. The right subcostal incision was healing well. Steri-Strips were removed. The T-tube, which was draining had very light bile colored fluid, not norman bile as would be expected. The accessory drain had minimal output. The abdomen was prepared with a Betadine based solution leaving the drains in situ, but prepped into the field as well. A subcostal incision was opened incising the skin and subcutaneous tissue and extracting the PDS suture from the anterior and posterior rectus sheath. The abdomen was carefully entered and elevation of the fascial edge showed the T-tube to be completely explanted from the common duct quite obviously and only a few centimeters from the abdominal wall surface. Gentle manipulation of soft tissue and liver edge showed in the depths of the subcostal space and egress of clear bile as would be expected from extraction of the T-tube at this early stage. Accessory drain was in place, but appeared to be somewhat plugged. Irrigation was undertaken and close inspection of the choledochotomy undertaken. The PDS suture that had been in place was intact except for the defect site where the drain had been explanted. A decision was made that there were retained stones that either they would be removed or choledochoduodenostomy performed. On that basis, a pursestring suture of 4-0 PDS was made at the choledochotomy site and a cholangiocatheter placed and intraoperative cholangiography undertaken. Filling of the biliary tree showed it to be dilated and in the distal portion, a rather large filling defect far larger than had been anticipated was noted. On that basis, the catheter was removed and the choledochotomy incision incised with Tovar scissors once again and irrigation undertaken the common duct. There was no stone forthcoming and on that basis, flexible choledochoscopy was undertaken. The flexible choledochoscope was passed down the duct first examining proximally, showing no sign of proximal stones distally showing well-formed yellow gallstone and debris. With various maneuvers and different stone baskets, the debris was removed and several small stones again removed. Alternative irrigation and suctioning as well as choledochoscopic extraction was undertaken. Ultimately, the duct appeared to be cleared entirely and on that basis, T-tube cholangiogram was deemed appropriate. A #14 latex T-Tube was cut to appropriate configuration and placed in the common bile duct. The choledochotomy was secured with interrupted 4-0 PDS suture. Quite markedly inflammation and edema of the duct gave pause to the concept of choledochoduodenostomy as such anastomosis might be rather tenuous. Electronically Signed By: PABLO WARD MD 01/19/22 1414 PATIENT NAME: CHATO MONAE OPERATIVE REPORT DATE OF : 55 REPORT #: [id number] PHYSICIAN: PABLO WARD MD PCP: BERNARDA NEGRON MD REPORT IS CONFIDENTIAL AND NOT TO BE RELEASED WITHOUT AUTHORIZATION [facility] [address] [place] [id number] Signed Surgeon directed fluoroscopy was then undertaken for cholangiogram through the T-tube. Initially, there was hesitation of contrast to pass distally, but ultimately, it did pass to the distal common duct and although slightly irregular spilled into the duodenum confirming patency. At this point, it was deemed most advisable to avoid a choledochoduodenostomy given the inflammatory process in subhepatic space. The previous Des drain that was in the abdomen was manipulated into position after irrigation of the subhepatic space. Mindful that a secondary effect of the bile spillage was that of colonic ileus. Examination inferiorly was undertaken in the abdomen. Copious irrigation was undertaken with lavage of sterile saline, breaking down interloop filmy adhesions that were bile-stained. The transverse colon, which had been noted to be quite markedly distended on CT scan appeared nonischemic, but certainly somewhat inflamed secondarily. A pursestring of 2-0 silk was used in the transverse colon and entry to the colon allowed for suction decompressing of the colon. The pursestring was secured and the colotomy additionally repaired with interrupted 3-0 silk suture. Irrigation was undertaken more fully. There was no sign of leakage or other problem. Careful inspection of subhepatic space showed no sign of bile leak at the site of the T-tube. The T-tube was carefully manipulated through a stab incision in the right lateral abdomen assuring considerable redundancy to the tube, so as to avoid recurrent dislodgement, secured to skin with nylon suture. There appeared to be no sign of bile leak or other problem. A Des drain was assured to be in the subhepatic space as well. Attention was then turned towards closure. Posterior sheath and its attended peritoneum were reapproximated with running #1 PDS suture. Irrigation was undertaken in each layer as well. The anterior rectus sheath was reapproximated with running #1 PDS suture. Subcutaneous tissue irrigated more fully and a 20 mL of 0.25% Marcaine with epinephrine injected locally. This plane was closed with interrupted 3-0 Vicryl and Steri-Strips were applied. An Acticoat dressing was applied to the incision as well as the T-tube drainage site. The T-tube was draining normal appearing bile attached to tubing as usual and bile bag. Aspiration on the Des drain site with saline established flow once again and no evidence of bile leaking from the accessory drain. The patient was ultimately extubated and transferred to the recovery room in good condition and suffered no complication. Sponge, needle, and instrument counts were as correct x3. Electronically Signed By: PABLO WARD MD 01/19/22 1414 PATIENT NAME: CHATO MONAE OPERATIVE REPORT DATE OF : 55 REPORT #: [id number] PHYSICIAN: PABLO WARD MD PCP: BERNARDA NEGRON MD REPORT IS CONFIDENTIAL AND NOT TO BE RELEASED WITHOUT AUTHORIZATION [address] [address] Signed MD GRANT Denny/MODL /[id number] cc: Bernarda Negron MD Copies: BERNARDA NEGRON MD ~ Electronically Signed By: PABLO WARD MD 01/19/22 1414 PATIENT NAME: CHATO MONAE OPERATIVE REPORT DATE OF : 55 REPORT #: [id number] PHYSICIAN: PABLO WARD MD PCP: BERNARDA NEGRON MD REPORT IS CONFIDENTIAL AND NOT TO BE RELEASED WITHOUT AUTHORIZATION
--- NOTE | 2022-01-19 14:15 | OR ---
[facility] [address], [place] [address] Signed DATE OF OPERATION: 01/19/2022 SURGEON: Pablo Ward MD PREOPERATIVE DIAGNOSIS: Recent complex common bile duct exploration with placement of T-tube. POSTOPERATIVE DIAGNOSES: 1. Recent complex common bile duct exploration with placement of T-tube. 2. Contrast flow into the duodenum without sign of retained stone. PROCEDURES: 1. Surgeon directed fluoroscopy. 2. T-tube cholangiogram. ANESTHESIA: None. INDICATIONS: A 66-year-old white woman recently underwent common bile duct exploration, concurrent to cholecystectomy with multiple common duct stones. She had dislodgement of her T-tube in the early postoperative period for reasons that are unclear and re-exploration was required. This necessitated additional common duct exploration, clearance of additional stones in the common duct and replacement of the T-tube. Since operation several days ago, she showed no sign of bile leak at the accessory drain. The T-tube has had diminished bile output over the past few days. A T-tube cholangiogram is now performed to assess for patency of the distal duct, assessment for retained debris and stones and so on. She understands risk of bleeding, infection, and so forth related to the procedure and wished to proceed. FINDINGS: There was hesitation of contrast from the common bile duct into the duodenum initially, but ultimately flow was noted and free float into the duodenum. There was some retrograde filling of the pancreatic duct itself also. There was no evidence of retained stone or neoplasm that could be identified. The tube was capped off at conclusion of the procedure and taken off the bile bag. DESCRIPTION OF PROCEDURE: In the fluoroscopy room, the patient was placed in supine position. Preoperative Electronically Signed By: PABLO WARD MD 01/19/22 1415 PATIENT NAME: CHATO MONAE OPERATIVE REPORT DATE OF : 55 REPORT #: [id number] PHYSICIAN: PABLO WARD MD PCP: ANA MARIA CANTU MD REPORT IS CONFIDENTIAL AND NOT TO BE RELEASED WITHOUT AUTHORIZATION [facility] [address], [place] [address] Signed antibiotic Ancef 2 g had been given. Sedation was not required for this procedure. Examination of the upper abdomen with the fluoroscope aligned the T-tube into position. Gentle flushing of the T-tube with IV radiocontrast was undertaken showing delineation of the common bile duct, the T-tube itself and portions of the more distal common duct. With gentle pressure additionally the flow was established into the duodenum and some retrograde filling of the pancreatic duct. Free flow into the duodenum was ultimately well established. Examination of the anatomy did not demonstrate filling defect or neoplasm. The T-tube was then flushed with sterile saline and capped off with a device. She tolerated the procedure well. CONCLUDING DIAGNOSIS: Flow of contrast into the biliary tree with emptying into the duodenum, though sluggish. PLAN: We will keep a T-tube clamped at this point to assess for clinical response. If necessary, it will be re-established for flow. MD GRANT Denny/COLBY /[id number] Copies: ~ Electronically Signed By: PABLO WARD MD 01/19/22 1415 PATIENT NAME: CHATO MONAE OPERATIVE REPORT DATE OF : 55 REPORT #: [id number] PHYSICIAN: PABLO WARD MD PCP: ANA MARIA CANTU MD REPORT IS CONFIDENTIAL AND NOT TO BE RELEASED WITHOUT AUTHORIZATION
[2022-01-21] MEDS ORDERED: ACETAMINOPHEN500 MG PO (15:29)
[2022-01-21] MEDS ORDERED: METAMUCIL FIBE3.4 GM PO (15:30)
[2022-01-21] MEDS ORDERED: MIRALAX17 GM PO (15:30)
--- NOTE | 2022-01-24 08:21 | DS ---
[facility] [address], [place] [address] Signed ADMISSION DATE: 01/08/2022 DISCHARGE DATE: 01/21/2022 REASON FOR ADMISSION: Severe perianal pain, constipation, and subacute cholecystitis. HISTORY: This 66-year-old white woman is known to me from the past. She was last seen by me a few days prior to current admission upon office walk in appointment with complaints of severe anal pain and tenesmus. She underwent colonoscopy by me in the past year, which was essentially normal. She is known to me having undergone a low anterior resection for malignant polyp in 1995 with subsequent colorectal anastomotic stricture requiring dilation with complete resolution of her problems. She remains the patient of Dr. Bernarda Negron in the [facility]. She has several chronic issues including Charcot joints of her ankles, a distant history of Margie-en-Y gastric bypass for obesity with subsequent recurrence of obesity as well as chronic pain syndrome, for which she has been prescribed buprenorphine 8 mg q.i.d. She takes other medications as well. She has underlying anxiety and depression. She presented to the emergency room the evening of admission at this time and evaluated by Dr. Valero with complaints of abdominal pain and rectal pain. Her recent visit to my office confirmed a posterior anal fissure with severe anal spasm. She was prescribed diltiazem ointment, which she began using only a day prior to her current admission and recommendation for Anusol-HC suppository and fiber supplement was also made. Emergency room evaluation included a CT scan of the abdomen, which showed stool in the transverse and left colon as well as a widely patent colorectal anastomosis and as previously noted on other imaging studies several months ago to have a markedly dilated biliary tract with previous findings of intra-choledochal stones between 1.5 and 2 cm in size. The gallbladder was quite markedly distended in addition to the impressive distention of biliary tree. Given her multitude of problems at this time, she is admitted for further evaluation and care. PERTINENT PHYSICAL EXAMINATION: GENERAL: Showed an obese white woman, who was somewhat incoherent as to a discussion of her actual problems. She appeared inappropriately somnolent. NECK: Trachea is midline. CHEST: Clear. Electronically Signed By: PABLO WARD MD 01/24/22 0821 PATIENT NAME: CHATO MONAE DISCHARGE SUMMARY DATE OF : 55 REPORT #: [id number] PHYSICIAN: PABLO WARD MD PCP: BERNARDA NEGRON MD REPORT IS CONFIDENTIAL AND NOT TO BE RELEASED WITHOUT AUTHORIZATION [facility] [address], [place] [address] Signed HEART: Regular, without murmur. ABDOMEN: Obese, but soft. There is no sign of peritonitis or ascites. Laparoscopic scars from prior gastric bypass were noted. Ext: Showed bilateral mild edema and Charcot ankles. HOSPITAL COURSE: Mindful of her myriad problems-- dominantly including significant anemia with hematocrit of 27.2, as well as her recent anal fissure identification, she was given non-opiate medications to aid in her perianal pain and was begun on a MiraLAX prep to assess the colon for possible neoplastic change considering her significant anemia. Also mindful of her Margie-en-Y gastric bypass anatomy upper endoscopy was recommended to assess for ulceration. She was maintained on her outpatient dosage of buprenorphine, so as to avoid opiate withdrawal syndrome. On January 10, 2022, she underwent upper endoscopy, which showed no lesion of the stomach or esophagus or small bowel to account for anemia, specifically no ulceration. Colonoscopy showed no evidence of neoplastic change or other abnormality. The anastomosis was widely patent. The patient had noted for over a year post prandial epigastric and right subcostal pain. A previous CT examination has confirmed gallstones within the common bile duct without signs of acute cholecystitis, particularly nor signs of increased liver enzymes or bilirubin. On the basis of her symptoms and findings of profound intrahepatic ductal dilatation, she underwent open cholecystectomy with intraoperative cholangiogram on January 11, 2022. Found was a markedly dilated common bile duct with multiple large stones within it as well as a very dilated and elongated gallbladder with several stones in it and chronic inflammatory change. Complex common duct exploration was undertaken extracting multiple large gallstones. Various other interventions were required including flexible choledochoscopy with basket extraction of distal common duct stones and flexible choledochoscopy with distal common bile duct biopsy and brush biopsies to attempt to clear the duct. She had likely good emptying of the bile duct preoperatively despite her numerous stones and markedly dilated biliary tree as evidenced by relatively normal pre operative liver enzymes. A T-tube cholangiogram was performed which did not show contrast into the duodenum was considered probably patent and with edema and so forth from the intervention. The T tube was secured well into the common bile duct and an accessory drain also placed nearby. It was well recognized that her current anatomy of Margie-en-Y gastric bypass would preclude conventional ERCP papillotomy should the bile duct fail to be emptying well; absolutely the gallstones could not have been removed by a laparoscopic common duct exploration given the anatomy, inflammation and distortion of the duct and that is why it was not initially attempted. Electronically Signed By: PABLO WARD MD 01/24/22 0821 PATIENT NAME: CHATO MONAE DISCHARGE SUMMARY DATE OF : 55 REPORT #: [id number] PHYSICIAN: PABLO WARD MD PCP: BERNARDA NEGRON MD REPORT IS CONFIDENTIAL AND NOT TO BE RELEASED WITHOUT AUTHORIZATION [facility] [address], [place] [address] Signed Postoperatively, she did well initially, but by January 13, 2022 had a considerable amount of bile in the accessory drain and little out of the T-tube itself. She had been advanced in her diet, which she was tolerating well. A T-tube cholangiogram was performed on January 13, 2022, which confirmed the suspicion of dislodgement of the T-tube. The accessory drain was draining a copious amount of bilious fluid and given the high probability of dislodgement of the T-tube, re-exploration was undertaken on January 14, 2022. Reexploration confirmed that the T-tube had extracted from the common duct, although the closure of the duct was intact. I suspect the T-tube was dislodged due to body position change with her considerable abdominal obesity. Not mentioned previously was marked dilation of the transverse and left colon essentially related to ileus from the bile leak. At operation, she underwent reexploration of the common bile duct after a conventional cholangiogram showed retention of distal common duct debris and stones. Dislodgement of several small stones and a fair amount of debris was undertaken from the distal common duct and a T-tube replaced. Completion T-tube cholangiogram did show contrast egress through the distal common duct into the duodenum. The accessory drain was repositioned and the T-tube once again secured in the common bile duct without problem. Consideration was made for a choledochal duodenostomy as a definitive drainage approach. However, the inflammatory changes of the common bile duct and, to a lesser extent, the duodenum itself tempered one's enthusiasm for such an approach. In particular, it is preferred that [place] anatomy be preserved if possible. From that point forward, the patient progressed and did quite well. The T-tube was certainly producing a considerable amount of drainage from the biliary tree. The accessory drain showed no sign of bile leak. I performed a T-tube cholangiogram on January 19, 2022 when the T-tube drainage amount was diminishing; this did confirm flow from the common bile duct into the duodenum and no evidence of stone or neoplasm. Given those findings, the T-tube was capped off, which she tolerated well for 48 hours. The accessory drain continued to show no evidence of bile drainage in the accessory drain was removed. At the time of discharge, she is ambulating well, tolerating a regular diet. The T-tube has been capped off without problem. Her wound is healing well. She continues to use a diltiazem cream. The patient will be discharged to home anticipating followup in my office in four weeks or so. We will plan for a T-tube cholangiogram once again prior to that visit to allow for removal of the T-tube. If she have recurrent symptoms of right upper abdominal pain, nausea, or whatever that might be related to the biliary tract, the T-tube can be Electronically Signed By: PABLO WARD MD 01/24/22 0821 PATIENT NAME: CHATO MONAE DISCHARGE SUMMARY DATE OF : 55 REPORT #: [id number] PHYSICIAN: PABLO WARD MD PCP: BERNARDA NEGRON MD REPORT IS CONFIDENTIAL AND NOT TO BE RELEASED WITHOUT AUTHORIZATION [address] [address] Signed reattached to bile drainage and additional evaluation undertaken with cholangiogram. I think that is rather unlikely, however. Additionally, noted was the tapering off the buprenorphine medication. Her buprenorphine scheduled was 8 mg q.i.d. This was tapered down to 1 mg t.i.d., which made her impressively more lucid and without any adverse effect of increased generalized pain or signs of opiate withdrawal. It is our ultimate goal to have her completely off the buprenorphine entirely. She will maintain a 1 mg p.o. t.i.d. dosing at discharge. The patient was carefully instructed to avoid dislodging of the T-tube that is in place at this time to allow the fibrous tract to develop over it over in the ensuing weeks. She is requested to shower on a daily basis and keep the wound otherwise dry. She is also to continue using the diltiazem ointment to the perianal tissue as her clinical symptoms of fissure appear to be improving quite markedly. Additionally, she will maintain hydration as well as take MiraLAX on a daily basis and fiber supplement, Metamucil or Citrucel daily as well. DISCHARGE MEDICATIONS: Include: 1. Tylenol 500 mg two tablets p.o. q.6 hours p.r.n. pain, #60. 2. MiraLAX 17 g powder pack daily. 3. Metamucil or Citrucel fiber supplement 3.4 g p.o. daily. 4. She will resume her usual medication of vitamin C 500 mg p.o. daily, [id number] acid 500 mcg/400 mcg tablet one p.o. daily. 5. Ferrous sulfate (iron) 325 mg p.o. b.i.d. 6. Folic acid 0.4 mg p.o. daily. 7. Vitamin D 5000 units p.o. daily. 8. Calcium tablet chew one tablet p.o. daily. 9. Lisinopril 20 mg p.o. daily. 10. Pregabalin 150 mg p.o. b.i.d. 11. Risperidone 0.5 mg p.o. at bedtime. 12. Omeprazole 20 mg p.o. daily. 13. Metoprolol-XL 100 mg p.o. daily. 14. Cymbalta/duloxetine 60 mg p.o. daily. 15. Zofran 8 mg q.i.d. as needed for nausea. 16. Diltiazem 2% ointment to the perianal area b.i.d. 17. We will change buprenorphine to 1 mg p.o. t.i.d. (changed from 8 mg q.i.d.). She will discontinue diclofenac. DISCHARGE DIAGNOSES: Electronically Signed By: PABLO WARD MD 01/24/22 0821 PATIENT NAME: CHATO MONAE DISCHARGE SUMMARY DATE OF : 55 REPORT #: [id number] PHYSICIAN: PABLO WARD MD PCP: BERNARDA ENGRON MD REPORT IS CONFIDENTIAL AND NOT TO BE RELEASED WITHOUT AUTHORIZATION [address] [address] Signed 1. Chronic and subacute calculous cholecystitis with choledocholithiasis and massive gallbladder dilation and intrahepatic ductal dilatation. 2. Status post open cholecystectomy with common bile duct exploration and placement of T-tube, extraction of multiple stones, biopsy of common duct. 3. Dislodgement of T-tube in postoperative period, requiring re-exploration, additional common duct exploration, extraction of stones, T-tube cholangiogram, placement of T-tube and placement of drain. 4. Status post upper endoscopy and colonoscopy confirming a posterior anal fissure. No evidence of polyps or neoplasm and no evidence of ulceration or neoplasm of the esophagus, gastric pouch and jejunal limb. 5. Obesity. 6. Distant history of Margie-en-Y bypass. 7. Distorted and dysfunctional ankle joints (Charcot ankles). 8. Persistent and recurrent obesity. 9. Chronic anemia (most likely related to gastric bypass anatomy). 10. Hypertension. 11. Chronic pain syndrome with buprenorphine and clinically excessive sedation resulting there from. MD GRANT Denny/ANAL /[id number] cc: MD Gavin Goldberg MD Copies: BERNARDA NEGRON MD, WILLIAM S MD ~ Electronically Signed By: PABLO WARD MD 01/24/22 0821 PATIENT NAME: CHATO MONAE DISCHARGE SUMMARY DATE OF : 55 REPORT #: [id number] PHYSICIAN: PABLO WARD MD PCP: BERNARDA NEGRON MD REPORT IS CONFIDENTIAL AND NOT TO BE RELEASED WITHOUT AUTHORIZATION
--- NOTE | 2022-01-24 12:56 | PATH ---
[facility] [address] [place] [address] Signed SPECIMEN(S): A RETAINED COMMON DUCT STONE SPECIMEN SOURCE: A. RETAINED COMMON DUCT STONE FINAL PATHOLOGIC DIAGNOSIS: Retained common duct stone: - Calculi (stone) analysis: Calculi color: Brown. Calculi size: 7 x 6 mm. Multiple pieces received. Dimensions of the largest piece reported. Calculi weight: 88 mg. Calculi composition: Calcium bilirubinate 80%, calcium stearate 20%. PERFORMING LABORATORY: The technical and professional components of the stone analysis were performed at [facility] ([place], [place] (specimen ID#: [id number]). Detailed report is kept on file. Diagnostician: Gautam Chapman MD Pathologist Electronically Signed 01/24/2022 Copies: ~ PATIENT NAME: CHATO MONAE PATHOLOGY DATE OF : 55 REPORT #: [id number] PHYSICIAN: [facility] PCP: ANA MARIA CANTU MD REPORT IS CONFIDENTIAL AND NOT TO BE RELEASED WITHOUT AUTHORIZATION
== END 2022-01-21 17:25 | disposition home or self-care (01) | DRG 409 ==
LOC: ED 14:30 → CCU 20:26 → MS 20:26
PROVIDERS: ADMIT Surgery; ATTEND Surgery
PROC: 0DB58ZX Excision of Esophagus, Via Natural or Artificial Opening Endoscopic, Diagnostic (ICD-10-PCS; principal; 2022-01-10 10:45)
PROC: 0FT40ZZ Resection of Gallbladder, Open Approach (ICD-10-PCS; 2022-01-11)
PROC: BF131ZZ Fluoroscopy of Gallbladder and Bile Ducts using Low Osmolar Contrast (ICD-10-PCS; 2022-01-11)
PROC: 0FC98ZZ Extirpation of Matter from Common Bile Duct, Via Natural or Artificial Opening Endoscopic (ICD-10-PCS; 2022-01-11)
PROC: 0FD98ZX Extraction of Common Bile Duct, Via Natural or Artificial Opening Endoscopic, Diagnostic (ICD-10-PCS; 2022-01-11)
PROC: 0DD68ZX Extraction of Stomach, Via Natural or Artificial Opening Endoscopic, Diagnostic (ICD-10-PCS; 2022-01-11)
PROC: 0FC48ZZ Extirpation of Matter from Gallbladder, Via Natural or Artificial Opening Endoscopic (ICD-10-PCS; 2022-01-11 09:30)
DX: K80.47 Calculus of bile duct with acute and chronic cholecystitis with obstruction (principal); T85.628A Displacement of other specified internal prosthetic devices, implants and grafts, initial encounter; K56.7 Ileus, unspecified; K82.8 Other specified diseases of gallbladder; E66.9 Obesity, unspecified; M25.871 Other specified joint disorders, right ankle and foot; M25.872 Other specified joint disorders, left ankle and foot; D64.9 Anemia, unspecified; I10 Essential (primary) hypertension; G89.4 Chronic pain syndrome; M79.7 Fibromyalgia; F41.9 Anxiety disorder, unspecified; M19.90 Unspecified osteoarthritis, unspecified site; K64.4 Residual hemorrhoidal skin tags; K60.2 Anal fissure, unspecified; K21.9 Gastro-esophageal reflux disease without esophagitis; Z20.822 Contact with and (suspected) exposure to COVID-19; Z79.899 Other long term (current) drug therapy; Z79.01 Long term (current) use of anticoagulants; Z79.811 Long term (current) use of aromatase inhibitors; Z91.041 Radiographic dye allergy status; Z98.890 Other specified postprocedural states; Z68.34 Body mass index [BMI] 34.0-34.9, adult; Z86.010 Personal history of colon polyps; Z85.038 Personal history of other malignant neoplasm of large intestine
CPT/HCPCS: 00731; 00840; 36415; 47531; 74018; 74170; 74176; 74300; 76942; 80048; 80053; 81001; 82150; 83690; 83735; 85025; 85060; 86301; 87070; 87075; 87186; 87205; 87502; 88112; 88300; 88304; 88305; 96361; 96374; 97161; 99285-25; A9270; J0131; J0330; J0690; J1100; J1170; J1200; J1610; J1644; J1885; J2001; J2270; J2405; J2704; J2795; J3010; J3475; J3480; J7030; J7060; J7121; Q9967; U0003